=== PATIENT | male | born 1985 | race Caucasian/White ===

== ENCOUNTER 2016-12-03 15:46 | Emergency (ER) | payer BC, OTHER ==
[2016-12-03 16:10] VITALS: BP 110/60
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
--- NOTE | 2016-12-03 16:43 | RAD ---
INDICATION: Left knee pain. Injury. COMPARISON: None TECHNIQUE: AP, lateral, tunnel, and sunrise views were obtained. FINDINGS: The bony structures, joint spaces, and soft tissues are normal for age. IMPRESSION: NEGATIVE EXAMINATION.
== END 2016-12-03 16:47 | disposition home or self-care (01) ==
LOC: UCCORT 15:46
DX: M25.562 Pain in left knee (principal); S40.011A Contusion of right shoulder, initial encounter; W03.XXXA Other fall on same level due to collision with another person, initial encounter; Y93.9 Activity, unspecified; Y92.89 Other specified places as the place of occurrence of the external cause
CPT/HCPCS: 99211; G0463

== ENCOUNTER 2017-01-03 21:16 | Emergency (ER) | payer BC ==
[2017-01-03 21:53] VITALS: BP 134/76
[2017-01-03] MEDS ORDERED: Ibuprofen TAB* 800 MG PO ONE (22:16)
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
== END 2017-01-04 02:42 | disposition home or self-care (01) ==
LOC: ED 21:16
DX: S06.0X9A Concussion with loss of consciousness of unspecified duration, initial encounter (principal); S16.1XXA Strain of muscle, fascia and tendon at neck level, initial encounter; V49.49XA Driver injured in collision with other motor vehicles in traffic accident, initial encounter; Y93.89 Activity, other specified; Y92.89 Other specified places as the place of occurrence of the external cause; M79.7 Fibromyalgia; G43.909 Migraine, unspecified, not intractable, without status migrainosus; F41.9 Anxiety disorder, unspecified; F32.9 Major depressive disorder, single episode, unspecified; F12.90 Cannabis use, unspecified, uncomplicated
CPT/HCPCS: 72040; 99282; A9270-GY